=== PATIENT | female | born 1985 | race Caucasian/White ===

== ENCOUNTER → 2017-11-06 | Outpatient (CLI) | payer OTHER ==
--- NOTE | 2017-11-06 13:40 | Diagnostic Imaging Report ---
INDICATION: Bilateral breast tenderness and bilateral nipple discharge. Correlation is made with diagnostic mammogram performed earlier this same day. Sonographic interrogation of the retroareolar regions of bilateral breasts was performed. No solid or cystic masses identified sonographically. No abnormality is seen. IMPRESSION: BI-RADS category one No sonographic abnormality is identified. ACR BI-RADS Category 1: Negative. Dictated by: Dictated on workstation # [id number]
--- NOTE | 2017-11-06 18:43 | Diagnostic Imaging Report ---
INDICATION: Bilateral breast pain and galactorrhea. No prior studies are available for comparison. The current study was also evaluated with a Computer Aided Detection (CAD) system. Moderate parenchymal density is identified bilaterally. No discrete mass or malignant-appearing microcalcifications are seen. The axillae are unremarkable. IMPRESSION: No mammographic features suspicious for malignancy are identified. Further evaluation of bilateral retroareolar regions with ultrasound is recommended due to bilateral nipple discharge. ACR BI-RADS Category 0: Incomplete. (Needs additional imaging evaluation). Result letter will be mailed to the patient. Note: At least 10% of breast cancer is not imaged by mammography. Dictated by: Dictated on workstation # [id number]
== END ==
LOC: RAD 08:12
PROVIDERS: ATTEND Family Medicine
DX: O92.6 Galactorrhea (principal)
CPT/HCPCS: 76642; 77066